=== PATIENT | male | born 1955 | race Caucasian/White ===

== ENCOUNTER 2017-01-12 23:10 | Inpatient (IN) | payer OTHER ==
[~2017-01-12] VITALS: Ht 190.5 cm; Wt 83.0 kg
[2017-01-12 23:50] LABS: HEMATOCRIT 35.3 % (38.0-50.0); MCH 32.3 PG (29.0-34.0); MCHC 33.4 G/DL (30.0-36.0); MCV 96.7 FL (86-99); MEAN PLAT.VOLUME 10.3 uM^3 (9.0-12.4); PLATELET COUNT 324 K/uL (156-360); RBC DIS.WIDTH-CV 12.9 % (11.8-14.6); RBC DIS.WIDTH-SD 43.6 % (39-53); RED BLOOD COUNT 3.65 M/uL (4.00-5.50)
[2017-01-12 23:58] LABS: CHLORIDE 100 mEq/L (99-109); POTASSIUM 3.8 mEq/L (3.7-5.4); SODIUM 137 mEq/L (136-147)
[2017-01-13] VITALS (7 sets, daily range): BP systolic 124–141; BP diastolic 69–85
[2017-01-13] LABS: GLUCOSE 58 mg/dL (70-99)
[2017-01-13 00:01] LABS: ANION GAP 19 MEQ/L (2-14)
[2017-01-13 00:04] LABS: GFR ESTIMATE (CALCULATED) > 59 mL/min/; UREA NITROGEN (BUN) 10 mg/dL (9-23)
[2017-01-13 00:10] LABS: TROP-I INTERPRETATION NEGATIVE; TROPONIN-I < 0.01 ng/mL (0.0-0.30)
[2017-01-13 07:05] LABS: MCH 31.5 PG (29.0-34.0); MCHC 32.5 G/DL (30.0-36.0); RBC DIS.WIDTH-CV 13.3 % (11.8-14.6); RBC DIS.WIDTH-SD 46.7 % (39-53)
[2017-01-13 07:20] LABS: ALKALINE PHOSPHATASE 107 IU/L (3-129); ANION GAP 17 MEQ/L (2-14); CHLORIDE 99 MEQ/L (99-109); GFR ESTIMATE (CALCULATED) > 59 mL/min/; POTASSIUM 3.8 MEQ/L (3.7-5.4); SAMPLE HEMOLYSIS CHECK 0; SAMPLE ICTERIC CHECK 0; SAMPLE LIPEMIA CHECK 0; SODIUM 136 MEQ/L (136-147); TOTAL BILIRUBIN 0.7 MG/DL (0.0-1.0); UREA NITROGEN (BUN) 9 mg/dL (9-23)
[2017-01-13 07:29] LABS: GLUCOSE 111 mg/dL (70-99)
[2017-01-13 07:58] LABS: MEAN PLAT.VOLUME 10.8 uM^3 (9.0-12.4); PLATELET COUNT 296 K/uL (156-360)
[2017-01-14] VITALS (7 sets, daily range): BP systolic 143–174; BP diastolic 72–99
[2017-01-14 08:38] LABS: HEMATOCRIT 30.5 % (38.0-50.0); MCH 31.3 PG (29.0-34.0); MCHC 32.5 G/DL (30.0-36.0); MCV 96.5 FL (86-99); MEAN PLAT.VOLUME 10.4 uM^3 (9.0-12.4); PLATELET COUNT 262 K/uL (156-360); RBC DIS.WIDTH-SD 45.9 % (39-53); RED BLOOD COUNT 3.16 M/uL (4.00-5.50); WHITE BLOOD COUNT 5.6 K/uL (4.1-10.2)
[2017-01-14 14:33] LABS: EOSINOPHIL (%) 0.9 % (0-5); EOSINOPHIL COUNT 0.1 K/uL (0-0.3); IMMATURE GRANULOCYTE (%) 0.4 % (0.0-0.7); LYMPHOCYTE COUNT 1.3 K/uL (1.0-2.8); MONOCYTE COUNT 1.1 K/uL (0-0.8); NEUTROPHIL (%) 55.5 % (45-76); NEUTROPHIL COUNT 3.1 K/uL (1.8-6.4)
[2017-01-15 04:00] VITALS: BP 155/96
[2017-01-15 05:54] LABS: EOSINOPHIL (%) 0 % (0-5); IMMATURE GRANULOCYTE (%) 0.3 % (0.0-0.7); LYMPHOCYTE COUNT 1.2 K/uL (1.0-2.8); MCH 31.8 PG (29.0-34.0); MCHC 32.9 G/DL (30.0-36.0); MCV 96.9 FL (86-99); MONOCYTE (%) 15.8 % (3-12); MONOCYTE COUNT 1.4 K/uL (0-0.8); NEUTROPHIL (%) 70.5 % (45-76); NEUTROPHIL COUNT 6.4 K/uL (1.8-6.4); PLATELET COUNT 265 K/uL (156-360); RBC DIS.WIDTH-CV 12.8 % (11.8-14.6); RBC DIS.WIDTH-SD 45.2 % (39-53); RED BLOOD COUNT 2.89 M/uL (4.00-5.50); WHITE BLOOD COUNT 9.1 K/uL (4.1-10.2)
[2017-01-15 06:34] LABS: ANION GAP 6 MEQ/L (2-14); CHLORIDE 102 MEQ/L (99-109); GFR ESTIMATE (CALCULATED) > 59 mL/min/; GLUCOSE 138 mg/dL (70-99); IRON 21 MCG/DL (35-150); POTASSIUM 3.9 MEQ/L (3.7-5.4); SAMPLE HEMOLYSIS CHECK 0; SAMPLE ICTERIC CHECK 0; SAMPLE LIPEMIA CHECK 0; SODIUM 136 MEQ/L (136-147); UREA NITROGEN (BUN) 6 mg/dL (9-23)
[2017-01-15 07:19] VITALS: BP 159/87
[2017-01-15 11:22] VITALS: BP 161/90
[2017-01-15 15:29] VITALS: BP 159/91
[2017-01-16 00:08] VITALS: BP 145/88
[2017-01-16 05:59] LABS: EOSINOPHIL (%) 0.5 % (0-5); EOSINOPHIL COUNT 0.1 K/uL (0-0.3); HEMATOCRIT 27.4 % (38.0-50.0); IMMATURE GRANULOCYTE (%) 0.5 % (0.0-0.7); IMMATURE GRANULOCYTE COUNT 0.1 K/uL; INSTRUMENT ABS NEUTROPHIL CT 7.1 K/uL; LYMPHOCYTE COUNT 1.3 K/uL (1.0-2.8); MCH 32.5 PG (29.0-34.0); MCHC 33.2 G/DL (30.0-36.0); MCV 97.9 FL (86-99); MONOCYTE (%) 11.6 % (3-12); MONOCYTE COUNT 1.1 K/uL (0-0.8); NEUTROPHIL (%) 73.3 % (45-76); NEUTROPHIL COUNT 7.1 K/uL (1.8-6.4); PLATELET COUNT 253 K/uL (156-360); RBC DIS.WIDTH-CV 12.8 % (11.8-14.6); RBC DIS.WIDTH-SD 46.1 % (39-53); WHITE BLOOD COUNT 9.7 K/uL (4.1-10.2)
[2017-01-16 08:10] VITALS: BP 158/94
[2017-01-16 23:17] VITALS: BP 151/89
[2017-01-17 07:56] VITALS: BP 183/98
[2017-01-17 16:10] VITALS: BP 167/95
[2017-01-17 23:52] VITALS: BP 154/92
[2017-01-18 04:00] VITALS: BP 132/78
[2017-01-18 07:07] VITALS: BP 162/92
[2017-01-18 16:49] VITALS: BP 166/102
[2017-01-18 23:22] VITALS: BP 154/89
[2017-01-19 07:29] VITALS: BP 160/80
[2017-01-19 10:21] LABS: HEMATOCRIT 27.5 % (38.0-50.0); MCH 32.1 PG (29.0-34.0); MCHC 32.7 G/DL (30.0-36.0); MCV 98.2 FL (86-99); MEAN PLAT.VOLUME 10.6 uM^3 (9.0-12.4); PLATELET COUNT 294 K/uL (156-360); RBC DIS.WIDTH-CV 12.9 % (11.8-14.6); RBC DIS.WIDTH-SD 46.5 % (39-53); WHITE BLOOD COUNT 8.6 K/uL (4.1-10.2)
[2017-01-19 11:34] LABS: ANION GAP 10 MEQ/L (2-14); CHLORIDE 103 MEQ/L (99-109); GFR ESTIMATE (CALCULATED) > 59 mL/min/; GLUCOSE 101 mg/dL (70-99); POTASSIUM 3.5 MEQ/L (3.7-5.4); SAMPLE HEMOLYSIS CHECK 0; SAMPLE ICTERIC CHECK 0; SAMPLE LIPEMIA CHECK 0; SODIUM 141 MEQ/L (136-147); UREA NITROGEN (BUN) 14 mg/dL (9-23)
[2017-01-19] MEDS ORDERED: ASPIRIN EC325 MG PO (13:58)
[2017-01-19] MEDS ORDERED: FLONASE16 G1 BOTH NARES (13:58)
[2017-01-19] MEDS ORDERED: Robitussin AC,Tussi- PO (13:58)
[2017-01-19] MEDS ORDERED: TYLENOL REGULA325 MG PO (13:58)
[2017-01-19] MEDS ORDERED: PREDNISONE20 MG PO (13:58)
[2017-01-19] MEDS ORDERED: BACLOFEN10 MG PO (13:58)
[2017-01-19] MEDS ORDERED: MILK OF MAGNESI10 ML PO (13:58)
[2017-01-19] MEDS ORDERED: FERROUS SULFAT325 MG PO (13:58)
[2017-01-19] MEDS ORDERED: DOCUSATE SODIU100 MG PO (13:58)
[2017-01-19] MEDS ORDERED: SORE THROAT SP177 M1 MM (13:58)
[2017-01-19] MEDS ORDERED: OXYCODONE-APAP1 EACH PO (13:59)
[2017-01-19 15:53] VITALS: BP 141/80
[2017-01-19 23:55] VITALS: BP 170/75
[2017-01-20 07:07] VITALS: BP 167/57
[2017-01-20 16:11] VITALS: BP 150/88
[2017-01-21 00:03] VITALS: BP 159/84
[2017-01-21 08:02] VITALS: BP 156/97
[2017-01-21 15:40] VITALS: BP 123/78
[2017-01-21 23:41] VITALS: BP 162/89
[2017-01-22 07:23] VITALS: BP 152/82
[2017-01-22] MEDS ORDERED: AMLODIPINE BESY10 MG PO (15:39)
[2017-01-22] MEDS ORDERED: FLONASE16 G1 BOTH NARES (15:43)
[2017-01-22] MEDS ORDERED: BACLOFEN10 MG PO (15:43)
[2017-01-22] MEDS ORDERED: MOTRIN600 MG PO (15:43)
[2017-01-22] MEDS ORDERED: OXYCODONE-APAP1 EACH PO (15:43)
[2017-01-22 16:15] VITALS: BP 135/85
== END 2017-01-22 17:45 | disposition home health service (06) | DRG 493 ==
LOC: EDSEX 23:10 → EME 23:10 → EDBD 23:10 → EDOF 01-13 02:54 → 5WEST 01-13 04:20 → 3EAST 01-13 10:30 → 5WEST 01-14 13:29 → 3EAST 01-14 17:39
PROVIDERS: Emergency Medicine; Internal Medicine; Physician Assistant; Student in an Organized Health Care Education/Training Program
DX: S82.144A Nondisplaced bicondylar fracture of right tibia, initial encounter for closed fracture (principal); J44.1 Chronic obstructive pulmonary disease with (acute) exacerbation; D62 Acute posthemorrhagic anemia; M25.751 Osteophyte, right hip; M25.752 Osteophyte, left hip; Z96.653 Presence of artificial knee joint, bilateral; S91.311A Laceration without foreign body, right foot, initial encounter; E16.2 Hypoglycemia, unspecified; S82.401A Unspecified fracture of shaft of right fibula, initial encounter for closed fracture; F17.210 Nicotine dependence, cigarettes, uncomplicated; S82.254A Nondisplaced comminuted fracture of shaft of right tibia, initial encounter for closed fracture; R26.2 Difficulty in walking, not elsewhere classified; W18.39XA Other fall on same level, initial encounter; Y92.009 Unspecified place in unspecified non-institutional (private) residence as the place of occurrence of the external cause; M16.0 Bilateral primary osteoarthritis of hip; K40.90 Unilateral inguinal hernia, without obstruction or gangrene, not specified as recurrent
CPT/HCPCS: 71010; 73552; 73590; 73600; 73630; 73701; 76000; 80048; 80053; 82607; 82746; 83540; 84466; 84484; 85025; 85027; 86850; 86900; 86901; 93005; 94010; 94640; 94640 76; 97530 GO; 97530 GP; 99202; 99281; 99285; C1713; J0131; J0690; J1100; J1170; J1200; J1650; J1885; J2175; J2250; J2270; J2405; J3010; J7042; J7120; J7512; Q0169

== ENCOUNTER 2017-01-27 17:52 | Observation (INO) | payer OTHER ==
[~2017-01-27] VITALS: Ht 190.5 cm; Wt 79.7 kg
[~2017-01-27 17:52] MED LIST: AMLODIPINE BESY10 MG PO; ASPIRIN EC325 MG PO; BACLOFEN10 MG PO; DOCUSATE SODIU100 MG PO; FERROUS SULFAT325 MG PO; FLONASE16 G1 BOTH NARES; MILK OF MAGNESI10 ML PO; MOTRIN600 MG PO; OXYCODONE-APAP1 EACH PO; PREDNISONE20 MG PO; Robitussin AC,Tussi- PO; SORE THROAT SP177 M1 MM; TYLENOL REGULA325 MG PO
[2017-01-27] MEDS ORDERED: OXYCODONE HCL20 M1 PO (18:13)
[2017-01-27] MEDS ORDERED: DILAUDID4 MG PO (18:14)
[2017-01-27 19:33] LABS: HEMATOCRIT 32.6 % (38.0-50.0); MCH 32.1 PG (29.0-34.0); MCHC 33.1 G/DL (30.0-36.0); MEAN PLAT.VOLUME 9.4 uM^3 (9.0-12.4); PLATELET COUNT 483 K/uL (156-360); RBC DIS.WIDTH-CV 13.2 % (11.8-14.6); RBC DIS.WIDTH-SD 47.4 % (39-53); RED BLOOD COUNT 3.36 M/uL (4.00-5.50); WHITE BLOOD COUNT 12.4 K/uL (4.1-10.2)
[2017-01-27 19:40] LABS: CHLORIDE 100 mEq/L (99-109); POTASSIUM 4.7 mEq/L (3.7-5.4); SODIUM 138 mEq/L (136-147)
[2017-01-27 19:41] LABS: GLUCOSE 85 mg/dL (70-99)
[2017-01-27 19:43] LABS: ANION GAP 16 MEQ/L (2-14)
[2017-01-27 19:45] LABS: GFR ESTIMATE (CALCULATED) > 59 mL/min/
[2017-01-27 19:46] LABS: UREA NITROGEN (BUN) 17 mg/dL (9-23)
[2017-01-27 19:49] LABS: TROP-I INTERPRETATION NEGATIVE; TROPONIN-I < 0.01 ng/mL (0.0-0.30)
[2017-01-27] MEDS ORDERED: FOLIC ACID1 MG PO (21:02)
[2017-01-27] MEDS ORDERED: ONE DAILY FOR1 EAC2 PO (21:03)
[2017-01-27 23:41] VITALS: BP 112/81
[2017-01-28 02:12] LABS: TROP-I INTERPRETATION NEGATIVE; TROPONIN-I < 0.01 ng/mL (0.0-0.30)
[2017-01-28 04:08] VITALS: BP 123/77
[2017-01-28 08:00] VITALS: BP 130/85
[2017-01-28 08:19] LABS: ANION GAP 8 MEQ/L (2-14); CHLORIDE 100 MEQ/L (99-109); GFR ESTIMATE (CALCULATED) > 59 mL/min/; GLUCOSE 133 mg/dL (70-99); POTASSIUM 4.1 MEQ/L (3.7-5.4); SAMPLE HEMOLYSIS CHECK 0; SAMPLE ICTERIC CHECK 0; SAMPLE LIPEMIA CHECK 0; SODIUM 135 MEQ/L (136-147); TROP-I INTERPRETATION NEGATIVE; TROPONIN-I 0.02 ng/mL (0.0-0.30); UREA NITROGEN (BUN) 16 mg/dL (9-23)
[2017-01-28 09:58] LABS: ADD MIUA? NO; BILIRUBIN NEGATIVE; BLOOD NEGATIVE; COLOR YELLOW ((YELLOW)); GLUCOSE (STRIP) NEGATIVE; KETONES NEGATIVE; LEUKOCYTES NEGATIVE; NITRITE NEGATIVE; PROTEIN (STRIP) NEGATIVE; SPECIFIC GRAVITY 1.045 (1.000-1.030); UCUL ADDED? NO; UROBILINOGEN 0.2 MG/DL (0.2-1.0)
[2017-01-28 11:41] VITALS: BP 127/76
[2017-01-28] MEDS ORDERED: CARDIZEM CD120 MG PO (12:24)
[2017-01-28] MEDS ORDERED: ASPIR-LOW81 MG PO (12:24)
== END 2017-01-28 14:41 | disposition home health service (06) ==
LOC: EME → EDBD 17:52 → EME 17:52 → EDOF 21:38 → 5WEST 21:38
PROVIDERS: Emergency Medicine; Family Medicine; Hospitalist
DX: I48.0 Paroxysmal atrial fibrillation (principal); D64.9 Anemia, unspecified; J44.9 Chronic obstructive pulmonary disease, unspecified; G89.29 Other chronic pain; M19.90 Unspecified osteoarthritis, unspecified site; F17.210 Nicotine dependence, cigarettes, uncomplicated
CPT/HCPCS: 71020; 71275; 80048; 80069; 81003; 84443; 84484; 85027; 93005; 99281; 99284; G0378; J1644; J7030

== ENCOUNTER 2017-04-04 07:17 | Emergency (ER) | payer OTHER ==
[~2017-04-04] VITALS: Ht 190.5 cm; Wt 77.1 kg
[~2017-04-04 07:17] MED LIST changes: +ASPIR-LOW81 MG PO; +CARDIZEM CD120 MG PO; +DILAUDID4 MG PO; +FOLIC ACID1 MG PO; +ONE DAILY FOR1 EAC2 PO; +OXYCODONE HCL20 M1 PO
[2017-04-04 08:24] LABS: HEMATOCRIT 36.3 % (38.0-50.0); MCH 32.4 PG (29.0-34.0); MCHC 34.2 G/DL (30.0-36.0); MCV 94.8 FL (86-99); MEAN PLAT.VOLUME 11.9 uM^3 (9.0-12.4); PLATELET COUNT 83 K/uL (156-360); RBC DIS.WIDTH-CV 13.7 % (11.8-14.6); RBC DIS.WIDTH-SD 47.5 % (39-53); RED BLOOD COUNT 3.83 M/uL (4.00-5.50)
[2017-04-04 08:33] LABS: CHLORIDE 99 mEq/L (99-109); POTASSIUM 3.8 mEq/L (3.7-5.4); SODIUM 136 mEq/L (136-147)
[2017-04-04 08:36] LABS: ANION GAP 10 MEQ/L (2-14)
[2017-04-04 08:38] LABS: GFR ESTIMATE (CALCULATED) > 59 mL/min/
[2017-04-04 08:39] LABS: UREA NITROGEN (BUN) 12 mg/dL (9-23)
[2017-04-04 08:48] LABS: GLUCOSE 108 mg/dL (70-99)
[2017-04-04 10:41] VITALS: BP 122/88
== END 2017-04-04 10:44 | disposition home or self-care (01) ==
LOC: EME → EDBD 07:17 → EME 07:17
PROVIDERS: Nurse Practitioner Family
DX: M77.31 Calcaneal spur, right foot (principal); M79.671 Pain in right foot; M79.89 Other specified soft tissue disorders; I10 Essential (primary) hypertension; Z87.81 Personal history of (healed) traumatic fracture; Z88.0 Allergy status to penicillin; F17.200 Nicotine dependence, unspecified, uncomplicated
CPT/HCPCS: 71020; 73590; 73630; 80048; 85027; 87040; 93005; 93971; 99281; 99284; J1885

== ENCOUNTER → 2017-09-02 | Outpatient (CLI) | payer OTHER ==
[~2017-09-02] MED LIST changes: +GABAPENTIN300 MG PO; +OXYCODONE HCL30 MG PO; +OXYMORPHONE HCL10 M1 PO
== END | disposition home or self-care (01) ==
LOC: CDC 09:43
DX: Z01.810 Encounter for preprocedural cardiovascular examination (principal); S14.109A Unspecified injury at unspecified level of cervical spinal cord, initial encounter; R00.1 Bradycardia, unspecified; R94.31 Abnormal electrocardiogram [ECG] [EKG]
CPT/HCPCS: 93000

== ENCOUNTER 2017-09-04 09:49 | Day surgery (SDC) | payer OTHER ==
[~2017-09-04] VITALS: Ht 193 cm; Wt 81.6 kg
[2017-09-04 10:21] VITALS: BP 150/92
[2017-09-04 19:18] VITALS: BP 161/102
[2017-09-04 23:37] VITALS: BP 138/93
[2017-09-05] VITALS (7 sets, daily range): BP systolic 128–162; BP diastolic 76–92
[2017-09-06 03:58] VITALS: BP 155/93
[2017-09-06 04:53] VITALS: BP 148/80
[2017-09-06 07:50] VITALS: BP 171/88
== END 2017-09-06 12:25 | disposition home or self-care (01) ==
LOC: SDC → ENRESERV 16:49 → 2SOUTH 16:55 → ENRESERV 17:17 → 3EAST 18:56
DX: M47.12 Other spondylosis with myelopathy, cervical region (principal); M48.02 Spinal stenosis, cervical region; Z88.0 Allergy status to penicillin; F17.210 Nicotine dependence, cigarettes, uncomplicated; M25.78 Osteophyte, vertebrae
CPT/HCPCS: 72040; 76000; 95938; C1713; C1821; G0378; J0131; J0330; J1100; J1170; J1885; J2250; J2405; J2710; J3010; J3370; J3480

== ENCOUNTER 2017-09-21 10:08 | Inpatient (IN) | payer OTHER ==
[~2017-09-21] VITALS: Ht 193 cm; Wt 79.5 kg
[2017-09-21] VITALS (7 sets, daily range): BP systolic 105–158; BP diastolic 72–97
[2017-09-21 20:52] LABS: METH RESISTANT S AUREUS PCR NEGATIVE (NEGATIVE)
[2017-09-21 20:53] LABS: PROBE CHECK PASS; SPECIMEN PROCESSING CONTROL PASS
[2017-09-22] VITALS (17 sets, daily range): BP systolic 97–146; BP diastolic 61–76
[2017-09-23 03:53] VITALS: BP 138/86
[2017-09-23 07:58] VITALS: BP 125/77
[2017-09-23 12:22] VITALS: BP 134/75
[2017-09-23 16:18] VITALS: BP 129/76
[2017-09-23 19:36] VITALS: BP 117/75
[2017-09-24] VITALS (7 sets, daily range): BP systolic 120–155; BP diastolic 70–91
[2017-09-25 05:14] VITALS: BP 168/85
[2017-09-25 08:07] VITALS: BP 132/78
[2017-09-25 11:44] VITALS: BP 131/77
[2017-09-25 20:14] VITALS: BP 156/85
[2017-09-26 00:03] VITALS: BP 131/72
[2017-09-26 03:49] VITALS: BP 106/70
[2017-09-26 06:39] LABS: EOSINOPHIL (%) 0 % (0-5); HEMATOCRIT 23.8 % (38.0-50.0); IMMATURE GRANULOCYTE (%) 0.4 % (0.0-0.7); INSTRUMENT ABS NEUTROPHIL CT 6.6 K/uL; LYMPHOCYTE COUNT 0.4 K/uL (1.0-2.8); MCH 32.9 PG (29.0-34.0); MCHC 33.2 G/DL (30.0-36.0); MCV 99.2 FL (86-99); MONOCYTE (%) 2.9 % (3-12); MONOCYTE COUNT 0.2 K/uL (0-0.8); NEUTROPHIL (%) 91.3 % (45-76); NEUTROPHIL COUNT 6.6 K/uL (1.8-6.4); RBC DIS.WIDTH-CV 12.1 % (11.8-14.6); RBC DIS.WIDTH-SD 44.3 % (39-53); WHITE BLOOD COUNT 7.3 K/uL (4.1-10.2)
[2017-09-26 06:57] LABS: PLATELET COUNT 233 K/uL (156-360)
[2017-09-26 07:06] LABS: ANION GAP 7 MEQ/L (2-14); C-REACTIVE PROTEIN 15.6 MG/L (0-10); CHLORIDE 106 MEQ/L (99-109); GFR ESTIMATE (CALCULATED) > 59 mL/min/; GLUCOSE 188 mg/dL (70-99); POTASSIUM 4.3 MEQ/L (3.7-5.4); SAMPLE HEMOLYSIS CHECK 0; SAMPLE ICTERIC CHECK 0; SAMPLE LIPEMIA CHECK 0; SODIUM 140 MEQ/L (136-147); UREA NITROGEN (BUN) 13 mg/dL (9-23)
[2017-09-26 07:47] LABS: ERTH.SED.RATE 6 MM/HR (0-20)
[2017-09-26 08:11] VITALS: BP 137/75
[2017-09-26 16:26] VITALS: BP 161/74
[2017-09-26 19:57] VITALS: BP 142/73
[2017-09-26 23:40] VITALS: BP 142/74
[2017-09-27 08:15] VITALS: BP 138/84
[2017-09-27 15:58] VITALS: BP 120/58
[2017-09-27 21:12] LABS: ADD MIUA? NO; BILIRUBIN NEGATIVE; BLOOD NEGATIVE; COLOR YELLOW ((YELLOW)); GLUCOSE (STRIP) NEGATIVE; KETONES NEGATIVE; LEUKOCYTES NEGATIVE; NITRITE NEGATIVE; PROTEIN (STRIP) NEGATIVE; SPECIFIC GRAVITY 1.018 (1.000-1.030)
[2017-09-27 23:17] VITALS: BP 118/67
[2017-09-28 08:12] VITALS: BP 108/63
[2017-09-28 16:06] VITALS: BP 116/58
[2017-09-29 00:02] VITALS: BP 126/79
[2017-09-29 08:00] VITALS: BP 164/82
[2017-09-29 09:01] VITALS: BP 107/60
[2017-09-29 16:17] VITALS: BP 117/72
[2017-09-29 23:10] VITALS: BP 107/69
[2017-09-30 07:33] VITALS: BP 111/69
[2017-09-30] MEDS ORDERED: DIAZEPAM10 MG PO (09:16)
[2017-09-30] MEDS ORDERED: GABAPENTIN300 MG PO (09:16)
[2017-09-30] MEDS ORDERED: OXYMORPHONE HCL10 M1 PO (09:16)
[2017-09-30] MEDS ORDERED: OXYCODONE HCL30 MG PO (09:16)
== END 2017-09-30 15:21 | DRG 454 ==
LOC: SDC 10:08 → ENRESERV 16:28 → 4WEST 16:43 → 2SOUTH 16:43 → 4WEST 17:35 → ENRESERV 09-22 18:37 → 3EAST 09-22 20:26
PROVIDERS: Internal Medicine Critical Care Medicine; Internal Medicine Infectious Disease; Neurological Surgery
DX: T84.226A Displacement of internal fixation device of vertebrae, initial encounter (principal); G97.51 Postprocedural hemorrhage of a nervous system organ or structure following a nervous system procedure; Y83.1 Surgical operation with implant of artificial internal device as the cause of abnormal reaction of the patient, or of later complication, without mention of misadventure at the time of the procedure; M47.12 Other spondylosis with myelopathy, cervical region; M47.22 Other spondylosis with radiculopathy, cervical region; I10 Essential (primary) hypertension; I48.0 Paroxysmal atrial fibrillation; J44.9 Chronic obstructive pulmonary disease, unspecified; M81.0 Age-related osteoporosis without current pathological fracture; M48.10 Ankylosing hyperostosis [Forestier], site unspecified; G95.89 Other specified diseases of spinal cord; G62.9 Polyneuropathy, unspecified; M21.331 Wrist drop, right wrist; F17.210 Nicotine dependence, cigarettes, uncomplicated; Z96.652 Presence of left artificial knee joint; Z98.1 Arthrodesis status; Z88.0 Allergy status to penicillin; Z91.19 Patient's noncompliance with other medical treatment and regimen
CPT/HCPCS: 71010; 72020; 72125; 72141; 76000; 80048; 80202; 81003; 82565; 85025; 85651; 86140; 87070; 87075; 87077; 87186; 87205; 87641; 94002; 94003; 94799; 97530 GO; 97530 GP; C1713; C9113; J0131; J0330; J1100; J1170; J1580; J1885; J2250; J2405; J2704; J2710; J3010; J3370; J3480; J7030; P9045

== ENCOUNTER 2017-10-07 05:50 | Inpatient (IN) | payer OTHER ==
[~2017-10-07] VITALS: Ht 193 cm; Wt 69.8 kg
[~2017-10-07 05:50] MED LIST changes: +DIAZEPAM10 MG PO
[2017-10-07 06:47] LABS: HEMATOCRIT 26.7 % (38.0-50.0); MCH 31.5 PG (29.0-34.0); MCV 95.7 FL (86-99); PLATELET COUNT 378 K/uL (156-360); RBC DIS.WIDTH-CV 13.2 % (11.8-14.6); RBC DIS.WIDTH-SD 46.2 % (39-53); RED BLOOD COUNT 2.79 M/uL (4.00-5.50); WHITE BLOOD COUNT 11.7 K/uL (4.1-10.2)
[2017-10-07 06:57] LABS: CHLORIDE 104 mEq/L (99-109); POTASSIUM 3.6 mEq/L (3.7-5.4); SODIUM 138 mEq/L (136-147)
[2017-10-07 07:00] LABS: ANION GAP 11 MEQ/L (2-14)
[2017-10-07 07:03] LABS: GFR ESTIMATE (CALCULATED) > 59 mL/min/; UREA NITROGEN (BUN) 15 mg/dL (9-23)
[2017-10-07 07:07] LABS: TROP-I INTERPRETATION NEGATIVE; TROPONIN-I < 0.01 ng/mL (0.0-0.30)
[2017-10-07 07:10] LABS: GLUCOSE 115 mg/dL (70-99)
[2017-10-07] MEDS ORDERED: NEURONTIN400 MG PO (12:16)
[2017-10-07] MEDS ORDERED: FEOSOL325 MG PO (12:16)
[2017-10-07 13:29] LABS: TROP-I INTERPRETATION NEGATIVE; TROPONIN-I < 0.01 ng/mL (0.0-0.30)
[2017-10-07 13:31] VITALS: BP 117/69
[2017-10-07 13:43] LABS: IRON 13 MCG/DL (35-150)
[2017-10-07 13:59] LABS: FERRITIN 1020 NG/ML (22-322)
[2017-10-07 15:48] VITALS: BP 119/74
[2017-10-07 19:38] LABS: TROP-I INTERPRETATION NEGATIVE; TROPONIN-I < 0.01 ng/mL (0.0-0.30)
[2017-10-07 21:12] VITALS: BP 110/58
[2017-10-07 23:30] VITALS: BP 122/75
[2017-10-08 03:52] VITALS: BP 123/65
[2017-10-08 05:32] LABS: HEMATOCRIT 24.6 % (38.0-50.0); MCH 31.3 PG (29.0-34.0); MCHC 32.5 G/DL (30.0-36.0); MCV 96.1 FL (86-99); MEAN PLAT.VOLUME 10.5 uM^3 (9.0-12.4); PLATELET COUNT 325 K/uL (156-360); RBC DIS.WIDTH-CV 13.3 % (11.8-14.6); RED BLOOD COUNT 2.56 M/uL (4.00-5.50); WHITE BLOOD COUNT 8.8 K/uL (4.1-10.2)
[2017-10-08 05:58] LABS: ANION GAP 8 MEQ/L (2-14); CHLORIDE 108 MEQ/L (99-109); GFR ESTIMATE (CALCULATED) > 59 mL/min/; GLUCOSE 119 mg/dL (70-99); POTASSIUM 3.8 MEQ/L (3.7-5.4); SAMPLE HEMOLYSIS CHECK 0; SAMPLE ICTERIC CHECK 0; SAMPLE LIPEMIA CHECK 0; SODIUM 141 MEQ/L (136-147); UREA NITROGEN (BUN) 12 mg/dL (9-23)
[2017-10-08 08:32] VITALS: BP 87/59
[2017-10-08 11:16] VITALS: BP 103/63
[2017-10-08 16:20] VITALS: BP 110/74
[2017-10-08 19:55] VITALS: BP 99/66
[2017-10-09 00:23] VITALS: BP 121/69
[2017-10-09 03:50] VITALS: BP 110/53
[2017-10-09 05:37] LABS: ANION GAP 8 MEQ/L (2-14); CHLORIDE 108 MEQ/L (99-109); GFR ESTIMATE (CALCULATED) > 59 mL/min/; GLUCOSE 124 mg/dL (70-99); POTASSIUM 3.9 MEQ/L (3.7-5.4); SAMPLE HEMOLYSIS CHECK 0; SAMPLE ICTERIC CHECK 0; SAMPLE LIPEMIA CHECK 0; SODIUM 140 MEQ/L (136-147); UREA NITROGEN (BUN) 12 mg/dL (9-23)
[2017-10-09 07:54] LABS: HEMATOCRIT 24.8 % (38.0-50.0); MCH 30.6 PG (29.0-34.0); MCHC 31.9 G/DL (30.0-36.0); MCV 96.1 FL (86-99); MEAN PLAT.VOLUME 11.3 uM^3 (9.0-12.4); PLATELET COUNT 334 K/uL (156-360); RBC DIS.WIDTH-CV 13.3 % (11.8-14.6); RBC DIS.WIDTH-SD 47.8 % (39-53); RED BLOOD COUNT 2.58 M/uL (4.00-5.50); WHITE BLOOD COUNT 10.8 K/uL (4.1-10.2)
[2017-10-09 08:09] VITALS: BP 107/61
[2017-10-09 10:55] VITALS: BP 115/70
[2017-10-09 16:38] VITALS: BP 116/87
[2017-10-09 19:00] VITALS: BP 129/76
[2017-10-10] VITALS (7 sets, daily range): BP systolic 116–137; BP diastolic 72–79
[2017-10-10 05:37] LABS: HEMATOCRIT 23.6 % (38.0-50.0); MCH 30.8 PG (29.0-34.0); MCHC 32.2 G/DL (30.0-36.0); MCV 95.5 FL (86-99); MEAN PLAT.VOLUME 10.7 uM^3 (9.0-12.4); PLATELET COUNT 300 K/uL (156-360); RBC DIS.WIDTH-CV 13.6 % (11.8-14.6); RBC DIS.WIDTH-SD 47.7 % (39-53); RED BLOOD COUNT 2.47 M/uL (4.00-5.50); WHITE BLOOD COUNT 8.9 K/uL (4.1-10.2)
[2017-10-10 09:32] LABS: INTERNAL CONTROL VALID? YES
[2017-10-10 14:08] LABS: IMM.RETIC FRACTION 9.1 % (3-19); RETIC HGB EQUIVALENT 28.2 (28-36); RETICULOCYTE COUNT 1.5 % (0.5-1.8)
[2017-10-10 14:16] LABS: INTER. NORMALIZED RATIO 1.1; PROTHROMBIN TIME 12.6 SEC (10.2-12.9)
[2017-10-10 14:19] LABS: PTT 31.9 SEC (25-37)
[2017-10-10 14:35] LABS: ALKALINE PHOSPHATASE 67 IU/L (3-129); DIRECT BILIRUBIN 0.2 mg/dL (0.0-0.3); LACTATE DEHYDROGENASE 156 IU/L (20-246); TOTAL BILIRUBIN 0.4 MG/DL (0.0-1.0)
[2017-10-10 14:49] LABS: C-REACTIVE PROTEIN 48.2 MG/L (0-10)
[2017-10-11 06:20] LABS: HEMATOCRIT 23.7 % (38.0-50.0); MCH 31.1 PG (29.0-34.0); MCHC 33.3 G/DL (30.0-36.0); MCV 93.3 FL (86-99); MEAN PLAT.VOLUME 10.5 uM^3 (9.0-12.4); PLATELET COUNT 308 K/uL (156-360); RBC DIS.WIDTH-CV 13.6 % (11.8-14.6); RBC DIS.WIDTH-SD 46.6 % (39-53); RED BLOOD COUNT 2.54 M/uL (4.00-5.50); WHITE BLOOD COUNT 9.4 K/uL (4.1-10.2)
[2017-10-11 07:55] VITALS: BP 116/73
[2017-10-11 11:25] VITALS: BP 118/77
[2017-10-11 15:23] VITALS: BP 126/71
[2017-10-11 19:00] VITALS: BP 118/74
[2017-10-11 23:52] VITALS: BP 117/63
[2017-10-12 04:05] VITALS: BP 115/80
[2017-10-12 05:24] LABS: MCH 29.9 PG (29.0-34.0); MCV 93.3 FL (86-99); MEAN PLAT.VOLUME 10.8 uM^3 (9.0-12.4); PLATELET COUNT 357 K/uL (156-360); RBC DIS.WIDTH-CV 13.4 % (11.8-14.6); RBC DIS.WIDTH-SD 46.4 % (39-53); RED BLOOD COUNT 2.68 M/uL (4.00-5.50); WHITE BLOOD COUNT 9.2 K/uL (4.1-10.2)
[2017-10-12 08:45] VITALS: BP 107/69
[2017-10-12 12:23] VITALS: BP 110/67
[2017-10-12 16:49] VITALS: BP 119/67
[2017-10-12 19:00] VITALS: BP 114/71
[2017-10-12 23:12] VITALS: BP 112/70
[2017-10-13 03:07] VITALS: BP 111/71
[2017-10-13 12:09] VITALS: BP 116/75
[2017-10-13 16:38] VITALS: BP 125/78
[2017-10-13 19:00] VITALS: BP 119/78
[2017-10-14] VITALS (7 sets, daily range): BP systolic 108–148; BP diastolic 60–94
[2017-10-15 04:44] VITALS: BP 98/60
[2017-10-15 07:32] VITALS: BP 129/78
[2017-10-15 10:45] VITALS: BP 114/69
[2017-10-15] MEDS ORDERED: NEURONTIN400 MG PO (10:46)
[2017-10-15] MEDS ORDERED: OXYCODONE HCL30 MG PO (10:46)
[2017-10-15] MEDS ORDERED: MIDODRINE HCL5 MG PO (10:46)
[2017-10-15] MEDS ORDERED: VANCOMYCIN1 GM/250 M IV (10:46)
[2017-10-15] MEDS ORDERED: DIAZEPAM10 MG PO (10:46)
[2017-10-15] MEDS ORDERED: OXYMORPHONE HCL10 M1 PO (10:46)
== END 2017-10-15 15:39 | DRG 863 ==
LOC: EME → EDBD 05:50 → EME 05:50 → 5WEST 12:02 → EDOF 12:02 → ENRESERV 12:10 → 5WEST 13:22
PROVIDERS: Emergency Medicine; Hospitalist; Internal Medicine
PROC: 0HQ1XZZ Repair Face Skin, External Approach (ICD-10-PCS; principal; 2017-10-07)
DX: T81.4XXA Infection following a procedure, initial encounter (principal); Y83.8 Other surgical procedures as the cause of abnormal reaction of the patient, or of later complication, without mention of misadventure at the time of the procedure; E86.0 Dehydration; D62 Acute posthemorrhagic anemia; I48.0 Paroxysmal atrial fibrillation; E87.6 Hypokalemia; M47.12 Other spondylosis with myelopathy, cervical region; G62.9 Polyneuropathy, unspecified; I27.20 Pulmonary hypertension, unspecified; S01.01XA Laceration without foreign body of scalp, initial encounter; W19.XXXA Unspecified fall, initial encounter; R55 Syncope and collapse; D63.8 Anemia in other chronic diseases classified elsewhere; R41.2 Retrograde amnesia; Z98.1 Arthrodesis status; I49.9 Cardiac arrhythmia, unspecified; Z96.653 Presence of artificial knee joint, bilateral; R32 Unspecified urinary incontinence; S01.111A Laceration without foreign body of right eyelid and periocular area, initial encounter
CPT/HCPCS: 70450; 71010; 71275; 72125; 72156; 76937; 80048; 80076; 80202; 82272; 82607; 82728; 82746; 83540; 83615; 84238 90; 84466; 84484; 85027; 85045; 85610; 85651; 85730; 86140; 93005; 93306; 95819; 97530 GP; 99281; 99285; G0378; J1200; J1644; J1885; J3370; J7030; J7040